=== PATIENT | male | born 1995 | race Caucasian/White ===

== ENCOUNTER 2020-12-18 17:24 | Emergency (ER) | payer OTHER ==
[~2020-12-18] VITALS: Ht 175.3 cm; Wt 95.3 kg
[2020-12-18 17:25] VITALS: BP 139/91
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
[2020-12-18] MEDS ORDERED: BACI1PAC6 TP (17:59)
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
[2020-12-18 19:14] VITALS: BP 127/88
== END 2020-12-18 18:00 ==
LOC: MED 17:24
DX: S00.81XA Abrasion of other part of head, initial encounter (principal); F10.129 Alcohol abuse with intoxication, unspecified; Z00.01 Encounter for general adult medical examination with abnormal findings; Z79.2 Long term (current) use of antibiotics; X58.XXXA Exposure to other specified factors, initial encounter; Y92.89 Other specified places as the place of occurrence of the external cause; Y93.89 Activity, other specified; Y99.8 Other external cause status
CPT/HCPCS: 99282